=== PATIENT | female | born 1975 | race Caucasian/White ===

== ENCOUNTER 2017-04-16 09:33 | Inpatient (IN) | payer MEDICAID ==
[~2017-04-16] VITALS: Ht 154.9 cm; Wt 64.5 kg
[~2017-04-16 09:33] MED LIST: FERR240T9 PO; PREN-39 PO
[2017-04-16 10:51] LABS: ADD SCAN DIFF NO
[2017-04-16 10:53] LABS: ABNORMAL IP MESSAGE 1; HEMATOCRIT 17.1 % (37.0-47.0); MEAN CORPUSCULAR HEMOGLOBIN 13.7 pg (29.0-33.0); MEAN CORPUSCULAR VOLUME 57.2 fl (82.0-101.0); PLATELET COUNT 253 10^3/UL (140-415); RED BLOOD COUNT 2.99 10^6/ul (4.20-5.40); RED CELL DISTRIBUTION WIDTH 24.4 % (11.5-14.5)
[2017-04-16 11:02] LABS: HEMOGLOBIN 4.1 g/dl (12.0-16.0)
[2017-04-16] MEDS ORDERED: SOD CHLORIDE 0.9% 250 ML IV ONE (11:07)
--- NOTE | 2017-04-16 11:09 | ERD ---
ER Documentation Chief Complaint Date/Time DATE: 04/16/17 TIME: 11:05 Chief Complaint Sent from for eval abnormal labs HPI This a 41-year-old female presents the emergency department today with her daughters for blood transfusion after having abnormal laboratory results. Patient states that she has had dizziness and fatigue however denies heavy vaginal bleeding. She is currently on her menstrual cycle. Denies any hematemesis or melanotic stools. Denies any abdominal pain or nausea or vomiting ROS All systems reviewed and are negative except as per history of present illness. Medications Home Meds Reported Medications Ferrous Gluconate (Iron) 1 Tab Tablet, 1 TAB PO DAILY 04/11/14 Vits W-Ca,Fe,Fa(<1MG) ( Vitamins) 1 Tab Tablet, 1 TAB PO DAILY 04/11/14 Allergies Allergies: Coded Allergies: No Known Allergy (Unverified , 09/13/13) PMhx/Soc Hx Respiratory Disorders: Yes (ASTHMA) Hx Alcohol Use: No Hx Substance Use: No Hx Tobacco Use: No Physical Exam Vitals Vital Signs Date Time Temp Pulse Resp B/P Pulse Ox O2 Delivery O2 Flow Rate FiO2 04/16/17 09:35 98.4 84 20 132/60 100 Physical Exam Const: Pale, no acute distress Head: Atraumatic Eyes: Normal Conjunctiva ENT: Normal External Ears, Nose and Mouth. Neck: Full range of motion..~ No meningismus. Resp: Clear to auscultation bilaterally Cardio: Regular rate and rhythm, no murmurs Abd: Soft, non tender, non distended. Normal bowel sounds Skin: Pale, no petechiae or rashes Back: No midline or flank tenderness Ext: No cyanosis, or edema Neur: Awake and alert Psych: Normal Mood and Affect Result Diagram: 04/16/17 1030 Results 24 hrs Laboratory Tests Test 04/16/17 10:30 White Blood Count 7.010^3/ul Red Blood Count 2.9910^6/ul Hemoglobin 4.1g/dl Hematocrit 17.1% Mean Corpuscular Volume 57.2fl Mean Corpuscular Hemoglobin 13.7pg Mean Corpuscular Hemoglobin Concent 24.0g/dl Red Cell Distribution Width 24.4% Platelet Count 05538^3/UL Mean Platelet Volume fl Prothrombin Time 12.8Sec Prothrombin Time Ratio 1.0 INR International Normalized Ratio 0.96 Activated Partial Thromboplast Time 30.8Sec Current Medications Medications (Trade) Dose Ordered Sig/Yo Route PRN Reason Start Time Stop Time Status Last Admin Dose Admin Sodium Chloride (NS) 250 ml @ 0 mls/hr Q0M ONCE IV 04/16/17 11:07 04/16/17 11:10 DC Procedures/MDM This is a 41-year-old female who presented to the emergency department today for further evaluation after being told by her primary care doctor that she needs a blood transfusion. Patient did bring her paperwork with her from [facility] and upon review of the patient's medical records the laboratory work that she had done on April 14, 2017, 2 days ago showed a hemoglobin of 4. Her other laboratory work appear to be within normal limits. I did repeat laboratory work today. Laboratory work shows a hemoglobin of 4.1 she has no elevated white blood cell count. Her platelets are within normal limits. At this time patient has anemia of uncertain etiology however it appears to be microcytic. I discussed the patient with Dr. Thompson patient will be admitted for blood transfusion. The risks and benefits of the procedure were explained to the patient and the patient agreed to proceed. Patient signed consent form Any further documentation or orders placed will be completed by Dr. Thompson. Departure Diagnosis: Primary Impression: Anemia Anemia type: unspecified type Qualified Code: D64.9 - Anemia, unspecified type Condition: BERT Fontanez PA-C Apr 16, 2017 11:09
[2017-04-16 11:11] LABS: INR 0.96; PROTIME 12.8 Sec (12.2-14.2)
[2017-04-16 11:12] LABS: PARTIAL THROMBOPLASTIN TIME 30.8 Sec (25.0-35.0)
[2017-04-16 11:13] LABS: ALBUMIN 4.9 g/dl (3.3-4.9); ALBUMIN/GLOBULIN RATIO 1.63; BILIRUBIN,INDIRECT 0.8 mg/dl (0-1.1); BILIRUBIN,TOTAL 0.8 mg/dl (0.2-1.3); CALCIUM 8.9 mg/dl (8.4-10.2); CREATININE 0.6 mg/dl (0.44-1.00); POTASSIUM 3.7 mmol/L (3.5-5.1); TOTAL PROTEIN 7.9 g/dl (6.1-8.1)
--- NOTE | 2017-04-16 11:24 | EN ---
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 I agree with the evaluation and plan of care. Please see their documentation for full ER course and evaluation. In short: 41-year-old female sent by primary care physician for anemia. The patient describes generalized malaise, she does have menstrual cycles but no significant menorrhagia, no melena, no hematemesis On exam: The patient has pallor but is otherwise well-appearing and hemodynamically stable. General: Well developed, well nourished, no acute distress, pallor Head: Normocephalic, atraumatic Eyes: Pupils equally reactive, EOM intact ENT: Moist mucous membranes Neck: Supple, no lymphadenopathy Respiratory: Lungs clear bilaterally, no distress Cardiovascular: RRR, no murmurs, rubs, or gallops Abdominal: Soft, non-tender, non-distended, no peritoneal signs : Deferred MSK: No edema, no unilateral swelling, 5/5 strength Neurologic: Alert and oriented, moving all extremities, normal speech, no focal weakness, no cerebellar signs Skin: No rash, pallor Psych: Normal mood Assessment and plan: Based on the patient's clinical presentation, physical exam and laboratory testing, I believe that a blood transfusion would be most appropriate. I believe the benefits outweigh the risks. I had a prolonged conversation regarding informed consent of a blood transfusion with the patient and/or family. We discussed the risks, benefits, alternatives of blood transfusion. There was verbalized understanding. A documented consent was signed and placed in the patient's chart. The patient is typed and crossmatched for 4 units packed red blood cells that can be given gradually over time frame as this is likely subacute and chronic. This is possibly secondary to menorrhagia, however GI workup would be appropriate given the patient's age and chronic, what appears to be iron deficiency anemia. The patient is hemodynamically stable and this appears to be a subacute process therefore medical surgical admission would be appropriate. Accepting care team and consultations: I discussed the current laboratory data, diagnostic imaging and emergency care provided. Admitting team: Dr. Garcia Admitting team indication: Insurance directed CIARA CHRISTENSEN MD Apr 16, 2017 11:24
[2017-04-16] MEDS ORDERED: ACETAMINOPHEN 325 MG TAB PO PRN ×2 (11:30→12:30)
[2017-04-16] MEDS ORDERED: ONDANSETRON 4 MG INJ IV PRN ×2 (11:30→12:30)
[2017-04-16] MEDS ORDERED: NACL 0.9% 3 ML SYG IV SCH (12:30)
[2017-04-16] MEDS ORDERED: HYDROCODONE/APAP (5/325) TAB PO PRN (12:30)
[2017-04-16] MEDS ORDERED: ALBUTEROL 0.083% (NEB) 2.5 MG/3 ML AMP HHN PRN (12:30)
[2017-04-16 13:01] LABS: EOSINOPHILS # 0.3 10^3/ul (0.0-0.5); LYMPHOCYTES # 2.5 10^3/ul (0.8-2.9); MONOCYTE # 0.6 10^3/ul (0.3-0.9); NEUTROPHIL # 3.6 10^3/ul (1.6-7.5)
--- NOTE | 2017-04-16 13:23 | RADRPT ---
PROCEDURE: US Pelvis CLINICAL INDICATION: Pelvic pain. TECHNIQUE: Transabdominal and transvaginal sonographic evaluation of the pelvis was performed. COMPARISON: None. FINDINGS: Myometrium is heterogeneous in echotexture with a small subserosal anterior body fibroid measuring a pproximately 0.5 x 2.1 x 1.7 cm. Endometrium is normal in thickness without a focal abnormality. Normal flow to both ovaries. No adnexal mass. There are small cysts and/or follicles identified in the bilateral ovaries. No free pelvic fluid. MEASUREMENTS: Uterus: 9.5 x 4.0 x 6.4 cm, anteverted. Endometrium: 0.2 cm. Right ovary size: 2.8 x 1.7 x 3.2 cm Left ovary size: 2.8 x 1.7 x 1.9 cm IMPRESSION: 1. Heterogeneous uterus with a single small anterior uterine body fibroid identified. 2. Small follicles and/or cysts in the bilateral adnexa without worrisome adnexal cyst or mass. RPTAT: EE .Glen Sheffield MD, MD Date Time Electronically viewed and signed by .Glen Sheffield MD, on 04/16/2017 13:28 .C/
[2017-04-16 13:27] LABS: IRON 10 ug/dl (35-150)
[2017-04-16 13:37] LABS: TOTAL IRON BINDING CAPACITY 403 ug/dl (241-421)
[2017-04-16] MEDS ORDERED: SOD FERRIC GLUC COMPLX 125 MG in SOD CHLORIDE 0.9% 100 ML IVPB SCH (14:30)
--- NOTE | 2017-04-16 14:36 | HP ---
Date/Time of Note Date/Time of Note DATE: 04/16/17 TIME: 14:31 Assessment/Plan VTE Prophylaxis VTE Prophylaxis Intervention: SCD's Assessment/Plan Chief Complaint/Hosp Course 1. Microcytic, hypochromic anemia. Symptomatic. The patient will be transfused with 4 units of PRBCs. The source of anemia is unclear at this time. The patient denied any melena, hematochezia, or hematemesis. The patient is currently on her menstrual periods. Patient denied any significant bleeding other than her usual. An iron panel will be obtained. Stool for occult blood will be obtained. A pelvic ultrasound will be obtained to evaluate for any underlying fibroids. An [employer] COMPRESS[employer] OPERATOR ADJUSTER consult will be obtained. 2. Asthma. No evidence of any exacerbation. The patient will be continued on as needed inhaled bronchodilators. Plan: The patient will be admitted to inpatient medical surgical floor. The patient will be started on a regular diet. The patient will be started on DVT prophylaxis and gastrointestinal prophylaxis. The patient will remain a full code. Activities will be with assist. The rest of the patient's management will be based on the clinical course and the results of diagnostic studies. Based on the patient's clinical presentation, she most probably requires at least one midnight's stay for further management and evaluation of her clinical presentation. The case and management of this patient was fully discussed with . Problems: HPI/ROS Admit Date/Time Admit Date/Time Hx of Present Illness Reason for admission: Referred by outside MD for blood transfusion because of anemia. This is a 41-year-old female with past medical history of asthma who came who was referred to the emergency room by her primary care physician because of significant anemia as per labs done at an outside lab. The patient was complaining of generalized weakness and dizziness. The patient denied any hematuria, melena, hematochezia, or hematemesis. The patient is currently on her menstrual period. The patient denied any history of heavy vaginal bleeding. She denied any history of uterine fibroids or irregular menstrual periods. However, she verbalized that at sometimes she bleeds more than usual. She denied any prior history of blood transfusions. She denied any history of iron deficiency. She does not take any iron tablets at home. In the emergency room, the patient was noticed to have significant anemia with a hemoglobin and hematocrit of 4.1 and 17.1 respectively. The patient's vital signs were within normal limits. 4 units of PRBC was ordered by the ER physician. ROS Constitutional: fatigue Eyes: no complaints ENT: no complaints Respiratory: no complaints Cardiovascular: no complaints Gastrointestinal: no complaints Genitourinary: bleeding Musculoskeletal: no complaints Skin: no complaints Neurologic: dizziness Endocrine: no complaints Lymphatic: no complaints Psychological: no complaints PMH/Family/Social Past Medical History Medical History: other (Asthma) Past Surgical History Past Surgical Hx: other () Social History The patient has 6 kids. She is a housewife. Alcohol Use: none Smoking Status: Never smoker Drug Use: none Exam/Review of Systems Vital Signs Vitals Vital Signs Date Time Temp Pulse Resp B/P Pulse Ox O2 Delivery O2 Flow Rate FiO2 04/16/17 13:15 98.4 72 18 111/61 100 Room Air Exam Exam General: Adequately build 41 year-old female lying in bed in no apparent distress. HEENT: Normocephalic, atraumatic. Eyes: Anicteric sclerae, conjunctivae clear. ENT: Nasal septum midline, oral mucosa moist. Neck supple, no JVD noticed. Respiratory: Bilaterally clear breath sounds. No use of accessory muscles of respiration. No adventitious breath sounds. Cardiovascular: S1, S2 heard. No murmurs or gallops. Abdomen: Soft, nontender, and nondistended. Bowel sounds positive in all 4 quadrants. Genitourinary: Deferred. Extremities: No cyanosis, no clubbing, no edema. Peripheral pulses palpable. Neurologic: Cranial nerves II through XII grossly intact. The patient is awake, alert, and oriented. Skin: Normal skin turgor. No skin rashes. Labs Result Diagram: 04/16/17 1030 04/16/17 1030 Medications Medications Current Medications Ondansetron HCl (Zofran Inj) 4 mg Q6H PRN IV NAUSEA AND/OR VOMITING; Start at 12:30 Acetaminophen (Tylenol Tab) 650 mg Q6H PRN PO PAIN LEVEL 1-3 OR FEVER; Start at 12:30 Acetaminophen/ Hydrocodone Bitart ([place] (5/325)) 1 tab Q6H PRN PO MODERATE PAIN LEVEL 4-6; Start 04/16/17 at 12:30 Pantoprazole (Protonix Tab) 40 mg DAILY@06 PO ; Start 04/17/17 at 06:00 KAZ LÓPEZ NP Apr 16, 2017 14:36
[2017-04-16 16:12] VITALS: TEMP 98.1
[2017-04-16 16:20] VITALS: BP 118/59; PULSE 70; RESP 18; Ht 154.9 cm; Wt 64.5 kg
--- NOTE | 2017-04-16 18:47 | QN ---
Documentation Comment 41 y.o with anemia per pt menstral cycles are normal with 4-5 day of bleeding and per pt no heavy. last pap 3 years prior vss exam wnl us wnl a/p 41 y.o with anemia of unknow origin. per pt done not have heavy cycles recommend fu with OBGYN on dc home will sign off. reconsult as needed ANDRAE SALMON MD Apr 16, 2017 18:47
[2017-04-16 19:46] LABS: HEMOGLOBIN 6.8 g/dl (12.0-16.0)
[2017-04-16 21:03] VITALS: BP 120/57; RESP 18
[2017-04-16 23:10] LABS: ADD UMIC YES; UR ASCORBIC ACID NEGATIVE (NEGATIVE); UR BILIRUBIN (Dip) NEGATIVE (NEGATIVE); UR BLOOD (Dip) 2+ mg/dL (NEGATIVE); UR CLARITY CLEAR (CLEAR); UR COLOR STRAW (YELLOW); UR GLUCOSE (Dip) NEGATIVE (NEGATIVE); UR KETONES (Dip) NEGATIVE (NEGATIVE); UR LEUKOCYTE ESTERASE (Dip) NEGATIVE Leu/ul (NEGATIVE); UR NITRITE (Dip) NEGATIVE (NEGATIVE); UR RBC 2 /HPF (0-5); UR SPECIFIC GRAVITY (Dip) 1.008 (1.003-1.030); UR TOTAL PROTEIN (Dip) NEGATIVE (NEGATIVE); UR UROBILINOGEN (Dip) NEGATIVE (NEGATIVE)
[2017-04-17] MEDS ORDERED: PANTOPRAZOLE (EC) 40 MG TAB PO SCH (06:00)
[2017-04-17 06:19] LABS: ABNORMAL IP MESSAGE 1; BASOPHIL # 0.1 10^3/ul (0.0-0.1); BASOPHILS % 0.7 % (0.0-2.0); EOSINOPHILS # 0.1 10^3/ul (0.0-0.5); EOSINOPHILS % 1.5 % (0.0-7.0); HEMOGLOBIN 9.5 g/dl (12.0-16.0); LYMPHOCYTES # 2.6 10^3/ul (0.8-2.9); LYMPHOCYTES % 34.5 % (15.0-51.0); MONOCYTE # 0.5 10^3/ul (0.3-0.9); MONOCYTES % 6.7 % (0.0-11.0); NEUTROPHIL # 4.2 10^3/ul (1.6-7.5); NEUTROPHILS % 55.9 % (39.0-77.0); NUCLEATED RED BLOOD CELLS # 0.1 10^3/ul (0.0-0.0); NUCLEATED RED BLOOD CELLS% 0.7 /100WBC (0.0-0.0); RED CELL DISTRIBUTION WIDTH 28.9 % (11.5-14.5); WHITE BLOOD COUNT 7.6 10^3/ul (4.8-10.8)
[2017-04-17 06:43] LABS: HEMATOCRIT 31.9 % (37.0-47.0); MEAN CORPUSCULAR HEMOGLOBIN 20.5 pg (29.0-33.0); MEAN CORPUSCULAR HGB CONC 29.8 g/dl (32.0-37.0); MEAN CORPUSCULAR VOLUME 68.8 fl (82.0-101.0); PLATELET COUNT 196 10^3/UL (140-415); RED BLOOD COUNT 4.64 10^6/ul (4.20-5.40)
[2017-04-17 06:48] LABS: ADD SCAN DIFF NO
[2017-04-17 06:51] LABS: PHOSPHORUS 4.5 mg/dl (2.5-4.9)
[2017-04-17 06:59] LABS: ALBUMIN/GLOBULIN RATIO 1.73
[2017-04-17 07:12] LABS: ALBUMIN 4.5 g/dl (3.3-4.9); BILIRUBIN,INDIRECT 2.7 mg/dl (0-1.1); BILIRUBIN,TOTAL 2.7 mg/dl (0.2-1.3); CALCIUM 9.6 mg/dl (8.4-10.2); CREATININE 0.51 mg/dl (0.44-1.00); POTASSIUM 4.6 mmol/L (3.5-5.1); TOTAL PROTEIN 7.1 g/dl (6.1-8.1)
[2017-04-17 08:38] VITALS: BP 126/64; RESP 17
--- NOTE | 2017-04-17 10:42 | PDOCDIS ---
Discharge Instructions CONDITION Patient Condition: Stable HOME CARE INSTRUCTIONS: Special Diet: regular diet ACTIVITY: Activity Restrictions: Slowly Increase Activity Avoid heavy lifting FOLLOW UP/APPOINTMENTS Follow-up Plan Please see your doctor in the clinic in 1 week. If you feel lightheadedness, or notice heave menstrual bleeding, go to ER or call 911, or call your doctor. CHRIS KAUR Apr 17, 2017 10:42
[2017-04-17] MEDS ORDERED: DOCU-144 PO (10:43)
[2017-04-17] MEDS ORDERED: FER325 PO (10:43)
--- NOTE | 2017-04-17 10:51 | DS ---
Date/Time of Note Date/Time of Note DATE: 04/17/17 TIME: 10:47 Discharge Summary Admission/Discharge Info Admit Date/Time Apr 16, 2017 at 11:22 Discharge Date/Time Discharge Diagnosis 1. Microcytic, hypochromic anemia - s/p transfusion with with 4 units of PRBCs - possibly sec to menstruation vs single fibroid. 2. Asthma. Patient Condition: Stable Hx of Present Illness Reason for admission: Referred by outside MD for a blood transfusion because of anemia. This is a 41-year-old female with past medical history of asthma who came who was referred to the emergency room by her primary care physician because of significant anemia as per labs done at an outside lab. The patient was complaining of generalized weakness and dizziness. The patient denied any hematuria, melena, hematochezia, or hematemesis. The patient is currently on her menstrual period. The patient denied any history of heavy vaginal bleeding. She denied any history of uterine fibroids or irregular menstrual periods. However, she verbalized that at sometimes a she bleeds more than usual. She denied any prior history of blood transfusions. She denied any history of iron deficiency. She does not take any iron tablets at home. In the emergency room, the patient was noticed a significant anemia with a hemoglobin and hematocrit of 4.1 and 17.1 respectively. The patient's vital signs are within normal limits. 4 units of PRBC was ordered by the ER physician. Hospital Course 41-year-old female who was referred to the emergency room by her primary care physician because of significant anemia as per labs done at an outside lab. The patient was complaining of generalized weakness and dizziness. The patient denied any hematuria, melena, hematochezia, or hematemesis. The patient is currently on her menstrual period. The patient denied any history of heavy vaginal bleeding. She denied any history of uterine fibroids or irregular menstrual periods. However, she verbalized that at sometimes a she bleeds more than usual. She denied any prior history of blood transfusions. She denied any history of iron deficiency. She does not take any iron tablets at home. In the emergency room, the patient was noticed a significant anemia with a hemoglobin and hematocrit of 4.1 and 17.1 respectively. The patient's vital signs are within normal limits. 4 units of PRBC was ordered by the ER physician - and pt received this. Her vag U/S = heterogeneous uterus with a single small anterior uterine body fibroid identified, and small follicles and/or cysts in the bilateral adnexa without worrisome adnexal cyst or mass. She had no signs of bleeding here in hospital, received IViron as well, started on iron tablets. H/H stable, VS stable, pt will be d/c home today in improved condition, given strict return precautions. Needs to f/u with PMD and ObGYN team in clinic in 1-2 weeks. Home Meds Active Scripts Docusate Sodium* (Colace*) 100 Mg Capsule, 100 MG PO DAILY, #30 CAP Prov:ORLANDO KAURCHRIS S. 04/17/17 Ferrous Sulfate* (Ferrous Sulfate*) 325 Mg Tabec, 325 MG PO BID, #60 TAB 4 Refills Prov:CHRIS KAUR S. 04/17/17 Discontinued Reported Medications Ferrous Gluconate (Iron) 1 Tab Tablet, 1 TAB PO DAILY 04/11/14 Vits W-Ca,Fe,Fa(<1MG) ( Vitamins) 1 Tab Tablet, 1 TAB PO DAILY 04/11/14 Primary Care Provider Care Physician No Primary Pending Labs Laboratory Tests Test 04/16/17 10:50 04/16/17 12:23 04/16/17 19:35 04/16/17 22:50 Iron Level 10ug/dl (35-150) Total Iron Binding Capacity 403ug/dl (241-421) Percent Iron Saturation 2% SAT (22-52) Ferritin 1.5ng/ml (6.2-137.0) Vitamin D 1,25-Dihydroxy 32.0ng/ml (30-100) Thyroid Stimulating Hormone (TSH) 1.690MIU/L (0.465-4.680) Free Thyroxine 1.05ng/dl (0.64-1.79) Hemoglobin A1c % (0-5.9) Hemoglobin 6.8g/dl (12.0-16.0) Hematocrit 24.0% (37.0-47.0) Urine Color STRAW (YELLOW) Urine Clarity CLEAR (CLEAR) Urine pH 7.0 (5.0-9.0) Urine Specific [place] 1.008 (1.003-1.030) Urine Ketones NEGATIVEmg/dL (NEGATIVE) Urine Nitrite NEGATIVEmg/dL (NEGATIVE) Urine Bilirubin NEGATIVEmg/dL (NEGATIVE) Urine Urobilinogen NEGATIVEmg/dL (NEGATIVE) Urine Leukocyte Esterase NEGATIVELeu/ul (NEGATIVE) Urine Microscopic RBC 2/HPF (0-5) Urine Microscopic WBC 0/HPF (0-5) Urine Hemoglobin 2+mg/dL (NEGATIVE) Urine Glucose NEGATIVEmg/dL (NEGATIVE) Urine Total Protein NEGATIVEmg/dl (NEGATIVE) Urine Test NEGATIVE (NEGATIVE) Test 04/17/17 04:40 04/17/17 05:10 04/17/17 05:35 04/17/17 05:42 White Blood Count 7.610^3/ul (4.8-10.8) Red Blood Count 4.6410^6/ul (4.20-5.40) Hemoglobin 9.5g/dl (12.0-16.0) Hematocrit 31.9% (37.0-47.0) Mean Corpuscular Volume 68.8fl (82.0-101.0) Mean Corpuscular Hemoglobin 20.5pg (29.0-33.0) Mean Corpuscular Hemoglobin Concent 29.8g/dl (32.0-37.0) Red Cell Distribution Width 28.9% (11.5-14.5) Platelet Count 25910^3/UL (140-415) Mean Platelet Volume fl (7.4-10.4) Neutrophils % 55.9% (39.0-77.0) Lymphocytes % 34.5% (15.0-51.0) Monocytes % 6.7% (0.0-11.0) Eosinophils % 1.5% (0.0-7.0) Basophils % 0.7% (0.0-2.0) Nucleated Red Blood Cells % 0.7/100WBC (0.0-0.0) Neutrophils # 4.210^3/ul (1.6-7.5) Lymphocytes # 2.610^3/ul (0.8-2.9) Monocytes # 0.510^3/ul (0.3-0.9) Eosinophils # 0.110^3/ul (0.0-0.5) Basophils # 0.110^3/ul (0.0-0.1) Nucleated Red Blood Cells # 0.110^3/ul (0.0-0.0) Sodium Level 142mmol/L (135-144) Potassium Level 4.6mmol/L (3.5-5.1) Chloride Level 105mmol/L (97-110) Carbon Dioxide Level 20mmol/L (21-31) Anion Gap 22 (8-16) Blood Urea Nitrogen 10mg/dl (7-20) Creatinine 0.51mg/dl (0.44-1.00) Glucose Level 89mg/dl (70-220) Calcium Level 9.6mg/dl (8.4-10.2) Total Bilirubin 2.7mg/dl (0.2-1.3) Direct Bilirubin 0.00mg/dl (0.00-0.20) Indirect Bilirubin 2.7mg/dl (0-1.1) Aspartate Amino Transf (AST/SGOT) 38IU/L (15-46) Alanine Aminotransferase (ALT/SGPT) 25IU/L (13-69) Alkaline Phosphatase 71IU/L (42-121) Total Protein 7.1g/dl (6.1-8.1) Albumin 4.5g/dl (3.3-4.9) Globulin 2.60g/dl (1.3-3.2) Albumin/Globulin Ratio 1.73 Phosphorus Level 4.5mg/dl (2.5-4.9) Magnesium Level 2.0mg/dl (1.7-2.5) Triglycerides Level 137mg/dl (0-149) Cholesterol Level 133mg/dl (100-200) LDL Cholesterol, Calculated 62mg/dl HDL Cholesterol 44mg/dl (34-88) Cholesterol/HDL Ratio 3.0RATIO Lab Scanned Report BLOOD [id number] CHRIS KAUR Apr 17, 2017 10:51
[2017-04-17] MEDS ORDERED: FERROUS SULFATE (EC) 325 MG TAB PO SCH (11:00)
== END 2017-04-17 13:30 | disposition home or self-care (01) | DRG 812 ==
LOC: FTE 09:33 → PP2 11:22
PROVIDERS: ADMIT Internal Medicine; ATTEND Internal Medicine
PROC: 30233N1 Transfusion of Nonautologous Red Blood Cells into Peripheral Vein, Percutaneous Approach (ICD-10-PCS; principal; 2017-04-16)
DX: D50.9 Iron deficiency anemia, unspecified (principal); J45.909 Unspecified asthma, uncomplicated
CPT/HCPCS: 36430; 76856; 80053; 80061; 81001; 82270; 82306; 82652; 82728; 83036; 83540; 83735; 84100; 84439; 84443; 84703; 85014; 85018; 85025; 85610; 85730; 86850; 86900; 86901; 86920; 96365; J2916; J7040; P9016